=== PATIENT | female | born 1955 | race Caucasian/White ===

== ENCOUNTER 2016-10-30 20:42 | Emergency (ER) | payer BC ==
[2016-10-30 20:58] VITALS: BP 151/90
--- NOTE | 2016-10-30 21:10 | UC ---
Complaint Female HPI - HPI Summary HPI Summary: Patient has had dysuria and noted blood on toilet paper when she wipes. - History Of Current Complaint Stated Complaint: POSS UTI,BLOOD IN URINE ?: No Onset/Duration: Sudden Onset, Lasting Days Timing: Constant Character: Burning Aggravating Factor(s): Urination - Allergies/Home Medications Allergies/Adverse Reactions: Allergies Allergy/AdvReac Type Severity Reaction Status Date / Time Morphine Allergy GI Upset Verified 10/30/16 20:58 Home Medications: Home Medications Alprazolam [Alprazolam Odt] 0.5 mg PO 10/30/16 [History] Amitriptyline TAB* [Elavil TAB*] 10 mg PO BEDTIME 10/30/16 [History Confirmed ] Calcium Carbonate-Vitamin D W/ [Caltrate 600+D Plus] 1 tab PO 10/30/16 [History] Cholecalciferol [Vitamin D] 400 unit PO 10/30/16 [History] Estrogens/Medroxypr 0.3(NF) [Prempro 0.3/1.5 (NF)] 1 tab PO 10/30/16 [History] Meloxicam [Mobic] 15 mg PO 10/30/16 [History] Omeprazole [Prilosec] 20 mg PO 10/30/16 [History] Sertraline HCl [Zoloft] 100 mg PO 10/30/16 [History] PMH/Surg Hx/FS Hx/Imm Hx Previously Healthy: Yes - Surgical History Surgical History: Yes Surgery Procedure, Year, and Place: rotator cuff surgery. - Family History Known Family History: Negative: Hypertension - Social History Alcohol Use: Weekly Substance Use Type: None Smoking Status (MU): Never Smoked Tobacco Review of Systems Constitutional: Negative Skin: Negative Eyes: Negative ENT: Negative Respiratory: Negative Cardiovascular: Negative Gastrointestinal: Abdominal Pain Genitourinary: Dysuria, Hematuria, Frequency Motor: Negative Neurovascular: Negative Musculoskeletal: Negative Neurological: Negative Psychological: Negative All Other Systems Reviewed And Are Negative: Yes Physical Exam Triage Information Reviewed: Yes Appearance: Well-Appearing, Well-Nourished, Pain Distress Vital Signs: Initial Vital Signs Temp 98.6 F 10/30/16 20:52 Pulse 115 10/30/16 20:52 Resp 18 10/30/16 20:52 BP 151/90 10/30/16 20:52 Pulse Ox 96 10/30/16 20:52 Eye Exam: Normal ENT Exam: Normal Dental Exam: Normal Neck exam: Normal Neck: Positive: Supple, Nontender, No Lymphadenopathy Respiratory Exam: Normal Respiratory: Positive: Chest non-tender, Lungs clear, Normal breath sounds Cardiovascular Exam: Normal Cardiovascular: Positive: No Murmur, Pulses Normal, Tachycardia Abdomen Description: Positive: No Organomegaly, Soft, CVA Tenderness (R) - neg, CVA Tenderness (L) - neg, Other: - lower abdominal tenderness Bowel Sounds: Positive: Present Musculoskeletal Exam: Normal Musculoskeletal: Positive: Strength Intact, ROM Intact, No Edema Neurological Exam: Normal Neurological: Positive: Alert, Muscle Tone Normal Psychological Exam: Normal Skin Exam: Normal Complaint Female Dx - Course Course Of Treatment: hx obtained, exam performed, meds reviewed, UA obtianed, treated for uti - Differential Dx/Diagnosis Differential Diagnosis/HQI/PQRI: Sexually Transmitted Disease, Ureteral Stone, Urinary Tract Infection Provider Diagnoses: UTI Discharge - Discharge Plan Condition: Stable Disposition: HOME Prescriptions: Cephalexin CAP* [Keflex CAP*] 500 mg PO BID #13 cap Patient Education Materials: Urinary Tract Infection in Women (ED) Additional Instructions: 1. take the medication as prescribed. 2. Increase your fluid intake and get plenty of rest. 3. MOnitor your BP and report back to your primary doctor for further evaluation and medication adjustment if needed.
[2016-10-30] MEDS ORDERED: Cephalexin CAP* 500 MG PO ONE ×2 (21:20→21:41)
[2016-10-30] MEDS ORDERED: Phenazopyridine TAB* 100 MG PO ONE (21:26)
--- NOTE | 2016-11-02 10:50 | UC ---
Progress - Progress Note Progress Note: cephalexin 11/02/16. call pt. cont abx.
== END 2016-10-30 21:49 | disposition home or self-care (01) ==
LOC: EDBD → UCEAST 20:42
DX: N39.0 Urinary tract infection, site not specified (principal); Z88.5 Allergy status to narcotic agent
CPT/HCPCS: 81003; 87077; 87086; 87186; 99202; A9270-GY; G0463